=== PATIENT | female | born 1985 | race African-American/Black ===

== ENCOUNTER → 2016-07-26 | Outpatient (CLI) | payer BC ==
[~2016-07-26] MED LIST: AMOX500T PO; Z.0.NO CURRENT MEDS
[2016-07-26 15:21] LABS: BETA HCG QUANT 264 MIU/ML (0-5)
== END ==
LOC: CLAB 14:47
PROVIDERS: ATTEND Obstetrics & Gynecology
DX: O20.0 Threatened abortion (principal)
CPT/HCPCS: 36415; 84702

== ENCOUNTER → 2016-07-27 | Outpatient (CLI) | payer BC ==
[2016-07-27 14:53] LABS: BETA HCG QUANT 354 MIU/ML (0-5)
== END ==
LOC: CLAB 14:04
PROVIDERS: ATTEND Obstetrics & Gynecology
DX: O20.0 Threatened abortion (principal)
CPT/HCPCS: 36415; 84702